=== PATIENT | female | born 2000 | race Two or more races ===

== ENCOUNTER 2020-12-22 13:47 | Outpatient (CLI) | payer OTHER | END 2020-12-22 14:01 | disposition home or self-care (01) | LOC: RAD 13:47 | PROVIDERS: ATTEND Family Medicine | DX: S02.2XXA Fracture of nasal bones, initial encounter for closed fracture (principal); S06.890A Other specified intracranial injury without loss of consciousness, initial encounter; M95.0 Acquired deformity of nose; J34.2 Deviated nasal septum; J32.8 Other chronic sinusitis ==

== ENCOUNTER 2020-12-31 12:25 | Outpatient (CLI) | payer OTHER | END 2020-12-31 12:43 | disposition home or self-care (01) | LOC: TOM 12:25 | PROVIDERS: ATTEND Family Medicine | DX: M95.0 Acquired deformity of nose (principal); J34.2 Deviated nasal septum; J32.8 Other chronic sinusitis; S02.2XXD Fracture of nasal bones, subsequent encounter for fracture with routine healing ==

== ENCOUNTER 2021-07-14 22:08 | Emergency (ER) | payer OTHER ==
[~2021-07-14] VITALS: Ht 162.6 cm; Wt 59.0 kg
[2021-07-15] MEDS ORDERED: PEPCID40 MG PO (00:59)
[2021-07-15] MEDS ORDERED: ZOFRAN4 MG PO (00:59)
== END 2021-07-15 01:05 | disposition home or self-care (01) ==
LOC: ER 22:08
DX: K29.70 Gastritis, unspecified, without bleeding (principal); R10.12 Left upper quadrant pain

== ENCOUNTER 2021-07-21 09:17 | Emergency (ER) | payer OTHER ==
[~2021-07-21] VITALS: Ht 162.6 cm; Wt 59.0 kg
[~2021-07-21 09:17] MED LIST: PEPCID40 MG PO; ZOFRAN4 MG PO
[2021-07-21] MEDS ORDERED: PRILOSEC OTC20 MG PO (09:31)
== END 2021-07-21 17:03 | disposition home or self-care (01) ==
LOC: ER 09:17
DX: K21.9 Gastro-esophageal reflux disease without esophagitis (principal); Z11.52 Encounter for screening for COVID-19

== ENCOUNTER 2022-05-10 08:22 | Emergency (ER) | payer OTHER ==
[~2022-05-10] VITALS: Ht 162.6 cm; Wt 61.2 kg
[~2022-05-10 08:22] MED LIST changes: +PRILOSEC OTC20 MG PO
== END 2022-05-10 13:17 | disposition home or self-care (01) ==
LOC: ER 08:22
DX: R50.9 Fever, unspecified (principal); Z91.013 Allergy to seafood; Z20.822 Contact with and (suspected) exposure to COVID-19

== ENCOUNTER 2022-05-16 15:32 | Emergency (ER) | payer OTHER ==
[~2022-05-16] VITALS: Ht 162.6 cm; Wt 61.2 kg
== END 2022-05-16 22:38 | disposition home or self-care (01) ==
LOC: ER 15:32
DX: G43.809 Other migraine, not intractable, without status migrainosus (principal); R11.10 Vomiting, unspecified; Z91.013 Allergy to seafood

== ENCOUNTER 2022-05-23 09:26 | Outpatient (CLI) | payer OTHER | END 2022-05-23 09:38 | disposition home or self-care (01) | LOC: MRI 09:26 | DX: G43.909 Migraine, unspecified, not intractable, without status migrainosus (principal) | CPT/HCPCS: 70553; Q9965; 70552 ==

== ENCOUNTER 2022-11-11 13:34 | Emergency (ER) | payer OTHER ==
[~2022-11-11] VITALS: Ht 160 cm; Wt 56.2 kg
[~2022-11-11 13:34] MED LIST changes: +PERCOCET 5-3251 EACH PO
== END 2022-11-11 20:34 | disposition home or self-care (01) ==
LOC: ER 13:34
DX: S62.395A Other fracture of fourth metacarpal bone, left hand, initial encounter for closed fracture (principal); X58.XXXA Exposure to other specified factors, initial encounter; Y93.9 Activity, unspecified; Y92.9 Unspecified place or not applicable; Z88.2 Allergy status to sulfonamides; Z91.013 Allergy to seafood

== ENCOUNTER 2022-11-23 09:44 | Outpatient (CLI) | payer OTHER | END 2022-11-23 09:48 | disposition home or self-care (01) | LOC: RAD 09:44 | PROVIDERS: ATTEND Orthopaedic Surgery | DX: S62.605A Fracture of unspecified phalanx of left ring finger, initial encounter for closed fracture (principal) ==

== ENCOUNTER 2022-12-12 08:05 | Outpatient (CLI) | payer OTHER | END 2022-12-12 08:09 | disposition home or self-care (01) | LOC: RAD 08:05 | PROVIDERS: ATTEND Orthopaedic Surgery | DX: S62.605D Fracture of unspecified phalanx of left ring finger, subsequent encounter for fracture with routine healing (principal) ==

== ENCOUNTER 2023-09-05 08:10 | Outpatient (CLI) | payer OTHER | END 2023-09-05 08:16 | disposition home or self-care (01) | LOC: RAD 08:10 | DX: M25.572 Pain in left ankle and joints of left foot (principal); Z91.013 Allergy to seafood ==